=== PATIENT | female | born 1970 | race Caucasian/White ===

== ENCOUNTER 2017-08-14 19:51 | Emergency (ER) | payer MEDICAID ==
[2017-11-12] MEDS ORDERED: OMEPRAZOLE20 M1 PO (09:14)
[2017-11-12] MEDS ORDERED: REQUIP1 MG PO (09:15)
[2017-11-12] MEDS ORDERED: BUMETANIDE0.5 MG PO (09:15)
[2017-11-12] MEDS ORDERED: FLUTICASONE PRO16 GM NASAL (09:15)
[2017-11-12] MEDS ORDERED: BUPROPION HCL100 MG PO (09:16)
[2017-11-12] MEDS ORDERED: HYDROCODONE-APA1 TAB PO (09:16)
[2017-11-12] MEDS ORDERED: ESTRACE2 MG PO (09:16)
[2017-11-12] MEDS ORDERED: TOPROL XL25 MG PO (09:17)
[2017-11-12] MEDS ORDERED: KLONOPIN1 MG PO (09:17)
[2017-11-12] MEDS ORDERED: MOBIC7.5 MG PO (09:20)
[2017-11-15 08:28] VITALS: BMI 36.2
== END 2017-08-14 23:30 | disposition home or self-care (01) ==
LOC: D.ER 19:51
DX: S83.92XA Sprain of unspecified site of left knee, initial encounter (principal); X58.XXXA Exposure to other specified factors, initial encounter; Y93.41 Activity, dancing; Y92.89 Other specified places as the place of occurrence of the external cause; S93.402A Sprain of unspecified ligament of left ankle, initial encounter; I10 Essential (primary) hypertension; K21.9 Gastro-esophageal reflux disease without esophagitis; F17.200 Nicotine dependence, unspecified, uncomplicated

== ENCOUNTER → 2017-08-30 13:01 | Outpatient (CLI) | payer MEDICAID ==
[~2017-08-30 13:01] MED LIST: BUMETANIDE0.5 MG PO; BUPROPION HCL100 MG PO; DILAUDID4 MG PO; ESTRACE2 MG PO; FLUTICASONE PRO16 GM NASAL; HYDROCODONE-APA1 TAB PO; KLONOPIN1 MG PO; MOBIC7.5 MG PO; OMEPRAZOLE20 M1 PO; REQUIP1 MG PO; TOPROL XL25 MG PO
[2017-11-15 08:28] VITALS: BMI 36.2
== END | disposition home or self-care (01) ==
LOC: D.MRI 11:00
DX: S83.242A Other tear of medial meniscus, current injury, left knee, initial encounter (principal); X58.XXXA Exposure to other specified factors, initial encounter; Y93.89 Activity, other specified; Y92.029 Unspecified place in mobile home as the place of occurrence of the external cause; M24.272 Disorder of ligament, left ankle

== ENCOUNTER 2017-11-15 06:41 | Day surgery (SDC) | payer MEDICAID ==
[2017-11-12 11:15] LABS: CALC OSMOLALITY 287 mosm/kg (275-300); CARBON DIOXIDE 29.7 mmol/L (21.0-32.0); CHLORIDE - SERUM 106 mmol/L (98-107); CREATININE - SERUM 0.8 mg/dL (0.6-1.3); GLUCOSE 97 mg/dL (74-106); POTASSIUM - SERUM 4.1 mmol/L (3.5-5.1); SODIUM 144 mmol/L (136-145); UREA NITROGEN 14 mg/dL (7-18); eGFR NON AFRICAN AMERICAN 82 mL/min (90-120)
[2017-11-12 14:56] LABS: HEMATOCRIT 43.4 % (36.0-48.0); HEMOGLOBIN 13.3 g/dL (12-16); MCH 28.9 pg (26.0-34.0); MCHC 30.6 g/dL (31.0-37.0); MCV 94.1 fL (80.0-100.0); MEAN PLATELET VOLUME 11.4 fL (7.4-10.4); RBC 4.61 10x6/uL (4.00-5.40); RDW 14.9 % (11.5-14.5); WBC 7.4 10x3/uL (4.8-10.8)
[~2017-11-15] VITALS: Ht 172.7 cm; Wt 108.0 kg
--- NOTE | ~2017-11-15 | OP ---
PATIENT NAME: NICOLAS SORIA MEDICAL RECORD: [id number] :74 LOCATION:E[facility] ADMISSION DATE: SURGEON: ELBERT WALKER MD DATE OF OPERATION: 11/15/2017 PREOPERATIVE DIAGNOSIS: Anterior cruciate ligament tear of the left knee. POSTOPERATIVE DIAGNOSIS: Anterior cruciate ligament tear of the left knee. PROCEDURE: ACL reconstruction, left knee. SURGEON: Elbert Walker MD ANESTHESIA: General. INTRAOPERATIVE COMPLICATIONS: The case had to be converted from arthroscopy to arthrotomy because the graft was hung up in this large patient's adipose tissue. OPERATIVE SUMMARY IN DETAIL: After obtaining the appropriate preoperative orthopedic surgery consent as well as anesthetic consultation, evaluation and clearance, the patient was brought to the operative suite and placed in the operating table in supine position. After adequate general laryngeal mask was administered, tourniquet was placed about the proximal aspect of left lower extremity. Left lower extremity was then prepped and draped in routine sterile fashion. Leg was elevated and exsanguinated, tourniquet inflated to 350 mmHg. Routine inferolateral portal was established followed by superomedial portal and inferomedial portal. Diagnostic arthroscopy showed the patient had an ACL tear only. The residual in the ACL was taken down and notchplasty was performed. Tibial tunnel was created followed by the femoral tunnel after using the spade tipped drill. The graft was prepared on the back that is stqy-mguuyd-bwwc allograft and on its initial first passing, it would not deploy into the femoral tunnel. Unfortunately, the first TightRope had already deployed the lateral cortex, so arthrotomy was made. Then under direct visualization, the first TightRope was removed. The graft was taken out of the knee and reprepared with a TightRope. Also under direct visualization, the femoral tunnel was widened 0.5 mm bigger. It was then pulled through and through with good seating on both the femoral side as well as the tibial side. At this point, the knee was taken through range of motion. The TightRope was secured firmly to the lateral cortex and the distal fixation was achieved with a bicortical Arthrex 6.5 mm post. After all components were in placed in the graft, the knee was taken through range of motion. Sarah was negative as was anterior drawer. At this point, the patient's large incision was copiously irrigated. The arthrotomy itself was closed with #1 Vicryl. This was followed by 2-0 Vicryl and skin benson. The arthroscopy portals were also closed. Sterile dressings were applied. Tourniquet was deflated. The patient was awakened and taken to recovery in stable condition. All final needle and sponge counts were correct. TRANSINT:[id number] Voice Confirmation ID: [id number] DOCUMENT ID: [id number] OPERATIVE REPORT [id number] NICOLAS SORIA MD, ELBERT YAÑEZ at 1651 CC: [id number] DICTATION DATE: 11/15/17 1323 IN HOME TUTOR: 11/15/17 1602 REG [facility] [address] [place] [address]
[~2017-11-15 06:41] MED LIST changes: -DILAUDID4 MG PO
[2017-11-15 08:28] VITALS: BP 116/78; Ht 172.7 cm; Wt 108.0 kg
[2017-11-15] MEDS ORDERED: DILAUDID4 MG PO (12:11)
== END 2017-11-15 14:00 | disposition home or self-care (01) ==
LOC: D.PAN 06:41 → D.OPS 08:55 → D.PAN 09:00 → D.OPS 09:00 → D.PAN 14:00
PROVIDERS: Anesthesiology
DX: S83.512A Sprain of anterior cruciate ligament of left knee, initial encounter (principal); M25.562 Pain in left knee; S83.222A Peripheral tear of medial meniscus, current injury, left knee, initial encounter; F17.200 Nicotine dependence, unspecified, uncomplicated; I10 Essential (primary) hypertension; K21.9 Gastro-esophageal reflux disease without esophagitis; J44.9 Chronic obstructive pulmonary disease, unspecified; Z01.812 Encounter for preprocedural laboratory examination

== ENCOUNTER → 2018-05-26 15:56 | Outpatient (CLI) | payer MEDICAID ==
[2017-11-15 08:28] VITALS: BMI 36.2
[~2018-05-26 15:56] MED LIST changes: +DILAUDID4 MG PO
== END | disposition home or self-care (01) ==
LOC: D.MRI 15:56
DX: M25.562 Pain in left knee (principal)

== ENCOUNTER → 2018-07-26 09:57 | Outpatient (CLI) | payer MEDICAID ==
[2017-11-15 08:28] VITALS: BMI 36.2
== END | disposition home or self-care (01) ==
LOC: D.MRI 09:57
DX: M25.562 Pain in left knee (principal); S93.402A Sprain of unspecified ligament of left ankle, initial encounter; X58.XXXA Exposure to other specified factors, initial encounter

== ENCOUNTER → 2019-01-25 12:53 | Outpatient (CLI) | payer MEDICAID ==
[2017-11-15 08:28] VITALS: BMI 36.2
== END | disposition home or self-care (01) ==
LOC: D.MRI 01-17 14:30
PROVIDERS: ATTEND Clinical Nurse Specialist Family Health
DX: M25.561 Pain in right knee (principal)

== ENCOUNTER 2019-02-09 05:40 | Day surgery (SDC) | payer MEDICAID ==
[2019-02-08 10:05] LABS: HEMATOCRIT 46.2 % (36.0-48.0); HEMOGLOBIN 14.5 g/dL (12-16); MCH 28.2 pg (26.0-34.0); MCHC 31.4 g/dL (31.0-37.0); MCV 89.7 fL (80.0-100.0); MEAN PLATELET VOLUME 10.7 fL (7.4-10.4); RBC 5.15 10x6/uL (4.00-5.40); RDW 15.6 % (11.5-14.5); WBC 9.3 10x3/uL (4.8-10.8)
[2019-02-08 10:09] LABS: CALC OSMOLALITY 277 mosm/kg (275-300); CALCIUM 9.1 mg/dL (8.5-10.1); CARBON DIOXIDE 26.3 mmol/L (21.0-32.0); CHLORIDE - SERUM 104 mmol/L (98-107); CREATININE - SERUM 0.8 mg/dL (0.6-1.3); GLUCOSE 98 mg/dL (74-106); POTASSIUM - SERUM 4.2 mmol/L (3.5-5.1); SODIUM 139 mmol/L (136-145); UREA NITROGEN 13 mg/dL (7-18); eGFR NON AFRICAN AMERICAN 82 mL/min (90-120)
[~2019-02-09] VITALS: Ht 172.7 cm; Wt 129.3 kg
[2019-02-09 06:43] VITALS: BP 121/63; Ht 172.7 cm; Wt 129.3 kg
[2019-02-09] MEDS ORDERED: HYDROCODON-ACE1 EA10 PO (08:48)
--- NOTE | 2019-02-16 11:33 | OP ---
PATIENT NAME: NICOLAS SORIA MEDICAL RECORD: [id number] :74 LOCATION:[facility] ADMISSION DATE: SURGEON: ELBERT WALKER MD DATE OF OPERATION: 02/09/2019 PREOPERATIVE DIAGNOSIS: Anterior cruciate ligament rupture of the right knee. POSTOPERATIVE DIAGNOSIS: Anterior cruciate ligament rupture of the right knee. PROCEDURE: Anterior cruciate ligament reconstruction of the right knee. SURGEON: Elbert Walker MD ANESTHESIA: General. INTRAOPERATIVE COMPLICATIONS: None. SUMMARY OF PATHOLOGIC FINDINGS: The patient was indeed found to have a full thickness ACL tear consistent with the preoperative diagnosis and MRI findings as well as physical examination findings. OPERATIVE SUMMARY IN DETAIL: After obtaining the appropriate preoperative orthopedic surgery consent as well as anesthetic consultation, evaluation and clearance, the patient was brought to the operating room and placed on the operating table in supine position. After general laryngeal mask airway was administered, tourniquet was placed on the proximal aspect of the right lower extremity. Right lower extremity was then prepped and draped in routine sterile fashion. The leg was elevated and exsanguinated, tourniquet was inflated to 350 mmHg. Routine inferolateral portal was established followed by superomedial portal and inferomedial portal. Diagnostic arthroscopy showed the patient have the above findings. Mild chondromalacia was seen with some synovitis; however, not substantial except with the small area of grade II on the medial side. Residual ACL stump was then debrided. Formal notchplasty was performed using the arthroscopic resector. An 11-mm tibial tunnel was created followed by 11-mm femoral socket using the TightRope system. The allograft TightRope was then deployed into the tibial and femoral sockets with excellent seating. The TightRope button was then maximally tensioned. The distal FiberWires were held and the knee was taken through a range of motion and seated and then it was secured firmly over an Arthrex bicortical post. Having completed this, wounds were irrigated and closed in usual fashion. Sterile dressings were applied. Tourniquet was deflated. The patient was awakened, taken to the recovery room in stable condition. All final needle and sponge counts were correct. TRANSINT:[id number] Voice Confirmation ID: [id number] DOCUMENT ID: [id number] ELBERT WALKER MD at 1133 CC: [id number] DICTATION DATE: 02/15/19 1728 FINANCE AND ADMINISTRATION MANAGER: 02/16/[address] [facility] 02/09/19 [place] [id number] [place] [id number]
== END 2019-02-09 11:15 | disposition home or self-care (01) ==
LOC: D.OPS 05:40 → D.PAN 07:30 → D.OPS 11:15
PROVIDERS: Anesthesiology; ATTEND Orthopaedic Surgery
DX: S83.511A Sprain of anterior cruciate ligament of right knee, initial encounter (principal); X58.XXXA Exposure to other specified factors, initial encounter; M94.261 Chondromalacia, right knee; Z01.812 Encounter for preprocedural laboratory examination

== ENCOUNTER → 2019-03-21 14:03 | Outpatient (CLI) | payer MEDICAID ==
[2019-02-09 06:43] VITALS: BMI 43.4
[~2019-03-21 14:03] MED LIST changes: +HYDROCODON-ACE1 EA10 PO
== END | disposition home or self-care (01) ==
LOC: D.US 14:03
PROVIDERS: ATTEND Orthopaedic Surgery
DX: R60.0 Localized edema (principal)

== ENCOUNTER → 2019-04-03 11:00 | Outpatient (CLI) | payer MEDICAID ==
[2019-02-09 06:43] VITALS: BMI 43.4
== END | disposition home or self-care (01) ==
LOC: D.MRI 03-29 11:00
PROVIDERS: ATTEND Clinical Nurse Specialist Family Health
DX: M25.561 Pain in right knee (principal)

== ENCOUNTER → 2019-07-05 14:05 | Outpatient (CLI) | payer MEDICAID ==
[2019-02-09 06:43] VITALS: BMI 43.4
[~2019-07-05 14:05] MED LIST changes: +BACLOFEN10 MG PO; +OMNICEF300 MG PO; +PERCOCET 10-321 EAC1 PO; +PROTONIX20 MG PO; +ULTRAM50 MG PO
== END | disposition home or self-care (01) ==
LOC: D.MRI 14:05
PROVIDERS: ATTEND Clinical Nurse Specialist Family Health
DX: M25.562 Pain in left knee (principal)

== ENCOUNTER 2019-07-05 15:08 | Emergency (ER) | payer MEDICAID ==
[~2019-07-05] VITALS: Ht 172.7 cm; Wt 125.0 kg
[~2019-07-05 15:08] MED LIST changes: -BACLOFEN10 MG PO; -OMNICEF300 MG PO; -PERCOCET 10-321 EAC1 PO; -PROTONIX20 MG PO; -ULTRAM50 MG PO
[2019-07-05 15:17] VITALS: Ht 172.7 cm; Wt 125.0 kg
[2019-07-05] MEDS ORDERED: BACLOFEN10 MG PO (15:19)
[2019-07-05 16:00] LABS: APPEARANCE CLEAR (CLEAR); BILIRUBIN NEGATIVE (NEGATIVE); COLOR YELLOW (YELLOW); GLUCOSE NEGATIVE (NEGATIVE); KETONE NEGATIVE (NEGATIVE); NITRITE NEGATIVE (NEGATIVE); PROTEIN NEGATIVE (NEGATIVE); UROBILINOGEN NORMAL (NORMAL)
[2019-07-05 16:01] LABS: EPITHELIAL CELLS 0-5 /hpf (0-5); RED CELLS - URINE OCC /hpf (0-5)
[2019-07-05 16:02] LABS: BACTERIA MANY /hpf (NONE SEEN)
[2019-07-05] MEDS ORDERED: OMNICEF300 MG PO (17:40)
[2019-07-05] MEDS ORDERED: ULTRAM50 MG PO (17:40)
[2019-07-05 18:56] VITALS: BP 125/65
[2019-07-28] MEDS ORDERED: PROTONIX20 MG PO (12:48)
== END 2019-07-05 18:57 | disposition home or self-care (01) ==
LOC: D.ER 15:08
PROVIDERS: Family Medicine
DX: N39.0 Urinary tract infection, site not specified (principal); M54.5 Low back pain

== ENCOUNTER 2019-07-31 06:05 | Day surgery (SDC) | payer MEDICAID ==
[2019-07-28 13:15] LABS: HEMATOCRIT 45.2 % (36.0-48.0); HEMOGLOBIN 14.4 g/dL (12-16); MCH 28.9 pg (26.0-34.0); MCHC 31.9 g/dL (31.0-37.0); MCV 90.8 fL (80.0-100.0); MEAN PLATELET VOLUME 10.5 fL (7.4-10.4); RBC 4.98 10x6/uL (4.00-5.40); RDW 16.2 % (11.5-14.5); WBC 8.6 10x3/uL (4.8-10.8)
[~2019-07-31] VITALS: Ht 172.7 cm; Wt 127.0 kg
[~2019-07-31 06:05] MED LIST changes: +BACLOFEN10 MG PO; +OMNICEF300 MG PO; +PROTONIX20 MG PO; +ULTRAM50 MG PO
[2019-07-31 06:27] VITALS: BP 120/90; Ht 172.7 cm; Wt 127.0 kg
[2019-07-31] MEDS ORDERED: PERCOCET 10-321 EAC1 PO (10:46)
--- NOTE | 2019-07-31 11:59 | NUR ---
7929 MULTIPLE FAMILY AT SIDE. HAS ROUNDED WITH FAMILY.
--- NOTE | 2019-07-31 12:39 | OP ---
PATIENT NAME: NICOLAS SORIA MEDICAL RECORD: [id number] :74 LOCATION:[facility] ADMISSION DATE: SURGEON: AARON MUIR, ELBERT AYÑEZ DATE OF OPERATION: 07/31/2019 PREOPERATIVE DIAGNOSES: 1. Medial meniscus tear of the left knee. 2. Patellofemoral syndrome of the left knee. POSTOPERATIVE DIAGNOSES: 1. Partial thickness anterior cruciate ligament tear of left knee. 2. Articular loose bodies of the left knee. 3. Patellofemoral syndrome. PROCEDURES: 1. Arthroscopic loose body removal, left knee. 2. Arthroscopic debridement, partial thickness ACL tear. 3. Arthroscopic lateral release. SURGEON: Elbert Walker MD ANESTHESIA: General. INTRAOPERATIVE COMPLICATIONS: None. SUMMARY OF PATHOLOGIC FINDINGS: The patient was thought to have a lateral meniscus tear; however, she clearly had an anterior aspect and anterior medial aspect of her ACL graft, which was torn. She had a chondral flap that did appear to come from unroofing of the ACL tunnel that was also in the medial aspect of the knee along with several loose bodies. One small area of chondromalacia was seen on the weightbearing surface of the distal medial femoral condyle, grade II at best. The patient's patella was riding on the lateral facet with some early chondromalacia changes seen in the lateral facet consistent with the diagnosis of patellofemoral syndrome. OPERATIVE SUMMARY IN DETAIL: After obtaining the appropriate preoperative orthopedic surgery consent as well as anesthetic consultation, evaluation, and clearance, the patient was brought to the operating room and placed on the operating table in supine position. After general laryngeal mask airway was administered, tourniquet was placed on the proximal aspect of the left lower extremity. Left lower extremity was then prepped and draped in routine sterile fashion. The leg was elevated and exsanguinated, tourniquet was inflated to 350 mmHg. Routine inferolateral portal was established followed by superomedial portal and inferomedial portal. Diagnostic arthroscopy did reveal the above findings. Combination of full radius resector as well as a grasper were utilized to remove the loose bodies. These were photographed intraoperatively along with the anterior cruciate ligament that was torn. This portion was taken down; however, after the medial aspect, which did appear to be one fold of the patient's ACL reconstruction, the patient continued to have very stable knee with a negative arthroscopic anterior drawer finding. Lateral compartment was relatively pristine. Attention was then turned to the lateral release. Facet findings were noted. With direct arthroscopic visualization from medial portal, the lateral retinaculum was released just below the vastus lateralis all the way to the inferolateral portal. This resulted in excellent release. Having completed this, the knee was insufflated with 30 cc of 0.25% Marcaine with OPERATIVE REPORT [id number] NICOLAS SORIA epinephrine and 80 mg of Depo-Medrol. Arthroscopy portals were closed in routine interrupted fashion using 4-0 Prolene. Sterile dressings were applied. Tourniquet was deflated. The patient was awakened, taken to recovery room in stable condition. All final needle and sponge counts were correct. TRANSINT:[id number] Voice Confirmation ID: [id number] DOCUMENT ID: [id number] AARON MUIR, ELBERT YAÑEZ at 1239 CC: [id number] DICTATION DATE: 07/31/19 1049 ARRANGER ASSEMBLER: 07/31/19 1227 REG [place] [address] [place] [id number]
--- NOTE | 2019-07-31 12:43 | NUR ---
PT DC INSTRUCTIONS REVIEWED AT THIS TIME, PT VERBALIZES UNDERSTANDING. PT IV REMOVED AT THIS TIME, INTACT, NO REDNESS OR SWELLING NOTED AT SITE.
== END 2019-07-31 13:21 | disposition home or self-care (01) ==
LOC: D.OPS 06:05 → D.PAN 08:00 → D.OPS 08:00
PROVIDERS: Anesthesiology; ATTEND Orthopaedic Surgery
DX: S83.242A Other tear of medial meniscus, current injury, left knee, initial encounter (principal); X58.XXXA Exposure to other specified factors, initial encounter; S83.512A Sprain of anterior cruciate ligament of left knee, initial encounter

== ENCOUNTER 2019-09-05 22:01 | Emergency (ER) | payer MEDICAID ==
[~2019-09-05] VITALS: Ht 172.7 cm; Wt 102.3 kg
[~2019-09-05 22:01] MED LIST changes: +PERCOCET 10-321 EAC1 PO
[2019-09-05 22:04] VITALS: Ht 172.7 cm; Wt 102.3 kg
[2019-09-05] MEDS ORDERED: ALBUTEROL SULF8.5 GM INH (22:47)
[2019-09-05] MEDS ORDERED: ZPAK PO (22:47)
[2019-09-05 23:00] VITALS: BP 125/71
== END 2019-09-05 23:00 | disposition home or self-care (01) ==
LOC: D.ER 22:01
DX: J20.9 Acute bronchitis, unspecified (principal); R05 Cough

== ENCOUNTER 2019-11-02 06:10 | Day surgery (SDC) | payer MEDICAID ==
[2019-10-30 10:24] LABS: HEMATOCRIT 47.2 % (36.0-48.0); HEMOGLOBIN 14.7 g/dL (12-16); MCH 28.2 pg (26.0-34.0); MCHC 31.1 g/dL (31.0-37.0); MCV 90.6 fL (80.0-100.0); MEAN PLATELET VOLUME 10.6 fL (7.4-10.4); RBC 5.21 10x6/uL (4.00-5.40); RDW 16.2 % (11.5-14.5); WBC 12.1 10x3/uL (4.8-10.8)
[~2019-11-02] VITALS: Ht 172.7 cm; Wt 124.7 kg
[~2019-11-02 06:10] MED LIST changes: +ALBUTEROL SULF8.5 GM INH; +IMITREX50 MG; +PROZAC20 MG; +ZPAK PO
[2019-11-02 06:53] VITALS: BP 132/85; Ht 172.7 cm; Wt 124.7 kg
[2019-11-02] MEDS ORDERED: HYDROCODON-ACE1 EA10 PO (08:44)
--- NOTE | 2019-11-02 10:56 | OP ---
PATIENT NAME: NICOLAS SORIA MEDICAL RECORD: [id number] :74 LOCATION:[facility] ADMISSION DATE: SURGEON: ELBERT WALKER MD DATE OF OPERATION: 11/02/2019 PREOPERATIVE DIAGNOSES: 1. Carpal tunnel syndrome of the left wrist. 2. Adhesive capsulitis of the left shoulder. POSTOPERATIVE DIAGNOSES: 1. Carpal tunnel syndrome of the left wrist. 2. Adhesive capsulitis of the left shoulder. PROCEDURES: 1. Carpal tunnel release of the left wrist. 2. Manipulation of the left shoulder under anesthesia with an interscalene block. INTRAOPERATIVE COMPLICATIONS: None. SUMMARY OF PATHOLOGIC FINDINGS: Consistent with preoperative diagnoses, the patient had very tight transverse carpal ligament. Also, the patient did have [id number] adhesive capsulitis. Manipulation was very successful. OPERATIVE SUMMARY IN DETAIL: After obtaining the appropriate preoperative orthopedic surgery consent as well as anesthetic consultation, evaluation and clearance, the patient was brought to the operating room and placed on the operating table in supine position. After general laryngeal mask airway was administered, tourniquet was placed on the proximal aspect of the left upper extremity. Left upper extremity was prepped and draped in routine sterile fashion. After the appropriate timeout was taken, the shoulder was stabilized at the scapular region and it was manipulated first in abduction followed by external rotation, abduction, internal rotation. Having completed this, the arm was elevated and exsanguinated, tourniquet was inflated to 350 mmHg. Midline incision was made in line with the fourth metacarpal ray taken down the level of transverse carpal ligament. It was identified and gently incised. Then, under direct visualization with a [place] as protection, [place] light knife was utilized to release the entire transverse carpal ligament. Having completed this, wound was irrigated. Local lidocaine and Marcaine were placed around the incision. The incision was then closed by TERRI Erickson. Sterile dressings were applied. Tourniquet was deflated. The patient was awakened and taken to recovery room in stable condition. All final needle and sponge counts were correct. TRANSINT:[id number] Voice Confirmation ID: [id number] DOCUMENT ID: [id number] ELBERT WALKER MD at 1056 CC: [id number] DICTATION DATE: 11/02/19 0846 LEATHER FINISHER: 11/02/19 1052 REG [facility] [address] [place] [id number]
== END 2019-11-02 10:35 | disposition home or self-care (01) ==
LOC: D.OPS 06:10 → D.PAN 08:15 → D.OPS 10:35
PROVIDERS: Anesthesiology; ATTEND Orthopaedic Surgery
DX: G56.02 Carpal tunnel syndrome, left upper limb (principal); M75.02 Adhesive capsulitis of left shoulder; M25.561 Pain in right knee; M25.562 Pain in left knee; M17.12 Unilateral primary osteoarthritis, left knee

== ENCOUNTER → 2020-01-08 14:38 | Outpatient (CLI) | payer MEDICAID ==
[2019-11-02 06:53] VITALS: BMI 41.9
== END | disposition home or self-care (01) ==
LOC: D.MRI 14:38
PROVIDERS: ATTEND Orthopaedic Surgery
DX: S83.232A Complex tear of medial meniscus, current injury, left knee, initial encounter (principal)

== ENCOUNTER 2020-01-11 08:00 | Outpatient (CLI) | payer MEDICAID ==
[2019-11-02 06:53] VITALS: BMI 41.9
== END 2020-01-11 23:59 | disposition home or self-care (01) ==
LOC: D.MAMMO 08:00
PROVIDERS: ATTEND Obstetrics & Gynecology
DX: N63.25 Unspecified lump in the left breast, overlapping quadrants (principal)

== ENCOUNTER 2020-01-14 03:14 | Emergency (ER) | payer MEDICAID ==
[~2020-01-14] VITALS: Ht 172.7 cm; Wt 130.9 kg
[2020-01-14 03:18] VITALS: Ht 172.7 cm; Wt 130.9 kg
[2020-01-14] MEDS ORDERED: RANITIDINE HCL150 M1 PO (03:20)
[2020-01-14] MEDS ORDERED: OXYBUTYNIN CHLOR5 MG PO (03:21)
[2020-01-14 03:56] LABS: BACTERIA FEW /hpf (NEGATIVE); BILIRUBIN NEGATIVE (NEGATIVE); EPITHELIAL CELLS 0-5 /hpf (0-5); GLUCOSE NEGATIVE (NEGATIVE); KETONE NEGATIVE (NEGATIVE); NITRITE NEGATIVE (NEGATIVE); RED CELLS - URINE 0-5 /hpf (0-5); SPECIFIC GRAVITY 1.015 (1.005-1.020); UROBILINOGEN NORMAL (NORMAL); WHITE CELLS - URINE 0-5 /hpf (NEGATIVE)
[2020-01-14] MEDS ORDERED: NAPROSYN500 MG PO (04:11)
[2020-01-14] MEDS ORDERED: CYCLOBENZAPRINE10 MG PO (04:11)
[2020-01-14 04:32] VITALS: BP 145/101
== END 2020-01-14 04:33 | disposition home or self-care (01) ==
LOC: D.ER 03:14
PROVIDERS: Family Medicine
DX: M54.5 Low back pain (principal); I10 Essential (primary) hypertension; Z72.0 Tobacco use

== ENCOUNTER → 2020-03-08 15:51 | Outpatient (CLI) | payer MEDICAID ==
[2020-01-14 03:18] VITALS: BMI 43.8
[~2020-03-08 15:51] MED LIST changes: +CYCLOBENZAPRINE10 MG PO; +NAPROSYN500 MG PO; +OXYBUTYNIN CHLOR5 MG PO; +RANITIDINE HCL150 M1 PO
== END | disposition home or self-care (01) ==
LOC: D.LABREF 15:51
PROVIDERS: ATTEND Orthopaedic Surgery
DX: M17.12 Unilateral primary osteoarthritis, left knee (principal)

== ENCOUNTER 2020-03-11 12:32 | Inpatient (IN) | payer MEDICAID ==
[~2020-03-11] VITALS: Ht 172.7 cm; Wt 132.7 kg
[2020-04-03 11:54] LABS: BASOPHILS 0.2 % (0-2); EOSINOPHILS 3.6 % (0-7); HEMATOCRIT 45.1 % (36.0-48.0); HEMOGLOBIN 13.8 g/dL (12-16); LYMPHOCYTES 23.5 % (15-50); MCH 28.3 pg (26.0-34.0); MCHC 30.6 g/dL (31.0-37.0); MCV 92.6 fL (80.0-100.0); MEAN PLATELET VOLUME 10.5 fL (7.4-10.4); MONOCYTES 7.7 % (2-11); PLATELET COUNT 262 10x3/uL (130-400); RBC 4.87 10x6/uL (4.00-5.40); RDW 15.5 % (11.5-14.5); WBC 9.2 10x3/uL (4.8-10.8)
[2020-04-03 11:56] LABS: ANION GAP 14.5 mmol/L (8-16); CALCIUM 8.6 mg/dL (8.5-10.1); CARBON DIOXIDE 26.3 mmol/L (21.0-32.0); CREATININE - SERUM 1.3 mg/dL (0.6-1.3); POTASSIUM - SERUM 3.8 mmol/L (3.5-5.1)
[2020-04-03 11:57] LABS: APTT 26.1 SECONDS (22.8-39.4); INR 0.92 (0.85-1.17); PROTIME 12.3 SECONDS (11.6-15.0)
[2020-04-03 13:44] LABS: BACTERIA MANY /hpf (NEGATIVE); BILIRUBIN NEGATIVE (NEGATIVE); EPITHELIAL CELLS 0-5 /hpf (0-5); GLUCOSE NEGATIVE (NEGATIVE); KETONE NEGATIVE (NEGATIVE); NITRITE POSITIVE (NEGATIVE); RED CELLS - URINE 0-5 /hpf (0-5); UROBILINOGEN NORMAL (NORMAL); WHITE CELLS - URINE 0-5 /hpf (NEGATIVE)
--- NOTE | 2020-04-03 14:06 | NUR ---
1400-UA RESULTS CALLED TO OFFICE.
[2020-04-08] VITALS (12 sets, daily range): BP systolic 101–135; BP diastolic 42–103; BMI 36.4; BMI 24.3
[2020-04-08 06:45] LABS: BACTERIA MODERATE /hpf (NEGATIVE); BILIRUBIN NEGATIVE (NEGATIVE); EPITHELIAL CELLS 0-5 /hpf (0-5); GLUCOSE NEGATIVE (NEGATIVE); HYALINE CAST RARE /lpf (NONE SEEN); KETONE NEGATIVE (NEGATIVE); NITRITE NEGATIVE (NEGATIVE); RED CELLS - URINE 0-5 /hpf (0-5); UROBILINOGEN NORMAL (NORMAL); WHITE CELLS - URINE 0-5 /hpf (NEGATIVE)
--- NOTE | 2020-04-08 07:03 | NUR ---
0628 DR WALKER NOTIFIED OF URINALYSIS RESULTS FROM THIS MORNING. DR WALKER STATES TO PROCEED GETTING PT READY FOR SURGERY.
--- NOTE | 2020-04-08 11:15 | NUR ---
RECEIVED TO ROOM 1208 VIA BED FROM PACU. ROUSES TO VERBAL STIMULATION BUT VERY LETHARGIC. VSS. DENIES PAIN. DRESSING TO LEFT KNEE IS DRY AND INTACT. FAMILY IN ROOM.
--- NOTE | 2020-04-08 14:04 | NUR ---
HAD ABOUT 200 CC DARL GREEN EMESIS. CALLED ULYSSES TRUONG APN. NEW ORDERS RECEIVED.
--- NOTE | 2020-04-08 14:09 | NUR ---
RESTING QUIETLY WITH EYES CLOSED. PUREWICK PLACED WITH GOOD CLEAR YELLOW RETURN. DAUGHTER AT BEDSIDE.
--- NOTE | 2020-04-08 17:15 | NUR ---
WAS INCONTINENT OF URINE. PURE WICK HAD MOVED. LINENS CHANGED AND PURE WICK REPLACED. GIVEN TORADOL SLOW IVP FOR C/O LEFT KNEE PAIN LEVEL 9. WILL MONITOR. CPM IN PLACE AT THIS TIME.
--- NOTE | 2020-04-08 18:58 | NUR ---
PATIENT RESTING IN BED WITH NO S/S OF DISTRESS. GUEST AT BEDSIDE. PATIENT ON CPM MACHINE. PATIENT DENIES NEEDS AT THIS TIME. BED IN LOWEST POSITION AND CALL LIGHT WITHIN REACH. ENCOURAGED THE PATIENT TO CALL IF SHE HAS NEEDS. WILL CONTINUE TO MONITOR.
--- NOTE | 2020-04-08 20:15 | NUR ---
REMOVED PATIENT FROM CPM MACHINE
[2020-04-09 00:04] VITALS: BP 89/49
--- NOTE | 2020-04-09 05:02 | NUR ---
PLACED PATIENT ON CPM MACHINE
[2020-04-09 06:07] VITALS: BP 108/46
[2020-04-09 07:00] VITALS: BP 103/53
--- NOTE | 2020-04-09 07:00 | NUR ---
RECEIVED BEDSIDE REPORT ON PATIENT AND ASSUMED CARE OF PATIENT. PATIENT IN BED, WITH CPM ON LEFT LEG, VSS. RATES PAIN 10/10 BUT HAS ONLY USED PRICE LISTER 1 TIME, INSTRUCTED ON THE USE OF PRICE LISTER. IV 20 GA TO RIGHT HAND INFUSING 1/2 NS AT 100 ML/HR WITH NO S/S OF INFILTRATION NOTED. BBS - CLEAR AND EQUAL. ON RA. DRESSING TO LEFT KNEE C/D/I. VSS. HEAD TO TOE ASSESSMENT COMPLETED.
[2020-04-09 07:02] LABS: HEMATOCRIT 36.2 % (36.0-48.0); HEMOGLOBIN 10.7 g/dL (12-16); MCH 27.7 pg (26.0-34.0); MCHC 29.6 g/dL (31.0-37.0); MCV 93.8 fL (80.0-100.0); MEAN PLATELET VOLUME 10.3 fL (7.4-10.4); RBC 3.86 10x6/uL (4.00-5.40); RDW 15.9 % (11.5-14.5); WBC 10.4 10x3/uL (4.8-10.8)
--- NOTE | 2020-04-09 07:34 | NUR ---
PATIENT GIVEN BREAKFAST TRAY AND ASSISTED WITH SET UP. NO NEEDS AT THIS TIME.
--- NOTE | 2020-04-09 08:15 | NUR ---
PATIENT ATE 100% OF BREAKFAST TRAY, CPM REMOVED. SMALL AMOUNT OF BLOOD NOTED TO ALINA WRAP, PLACED ON BEDPAN. MORNING MEDS PER DEC. VOIDS 200 ML.
--- NOTE | 2020-04-09 08:22 | NUR ---
1/2 NS INFUSING DISCONTINUED PER ORDER.
--- NOTE | 2020-04-09 09:12 | NUR ---
CERTIFIED ORTHOTIST/PEDORTHIST DISCONTINUED PER ORDER. IV NSL.
--- NOTE | 2020-04-09 10:00 | NUR ---
PATIENT UP TO BEDSIDE CHAIR WITH ASSISTANCE OF PT AND WALKER. LEG STILL NUMB. TOLERATES WELL.
[2020-04-09 10:12] VITALS: Ht 172.7 cm; Wt 132.7 kg
--- NOTE | 2020-04-09 10:17 | NUR ---
PATIENT GIVEN PRN PHENERGAN FOR NAUSEA. SITTING UP IN BEDSIDE CHAIR, WATCHING TV.
--- NOTE | 2020-04-09 11:08 | NUR ---
PATIENT UP TO BATHROOM WITH ASSIST AND WALKER.
[2020-04-09 11:29] VITALS: BP 108/60
--- NOTE | 2020-04-09 11:32 | NUR ---
PATIENT SITTING UPB IN BEDSIDE CHAIR, DAUGHTER AT BEDSIDE, STATES PAIN BETTER SINCE PRN MED. NO NEEDS AT THIS TIME.
--- NOTE | 2020-04-09 12:16 | NUR ---
REMOVED SURGICAL DRESSING FROM LEFT KNEE AND APPLIED PREVENA PLUS DRESSING. INCISION IS INTACT WITH JANETT. NO ODOR, REDNESS OR EDEMA. THERE WAS A LARGE AMOUNT OF BLOOD SATURATING THE SURGICAL DRESSING, BUT NO ACTIVE BLEEDING NOTED AFTER REMOVAL. PT TOLERATED WELL.
--- NOTE | 2020-04-09 13:20 | NUR ---
PATIENT ATE 100% OF LUNCH TRAY, C/O PAIN 10/10 TO LEFT KNEE, PRN MED PER DEC.
--- NOTE | 2020-04-09 14:25 | NUR ---
PATIENT RESTING QUIETLY, EYES CLOSED.
--- NOTE | 2020-04-09 15:20 | NUR ---
PATIENT RESTING QUIETLY, EASILY AROUSED BY VOICE, MEDS GIVEN PER MAR. NO NEEDS AT THIS TIME.
[2020-04-09 15:53] VITALS: BP 104/61
--- NOTE | 2020-04-09 16:21 | NUR ---
PATIENT ASSISTED UP TO BATHROOM WITH WALKER, VOIDS AND ASSISTED BACK TO BED. PRN PAIN MED GIVEN FOR PAIN 10/10.
--- NOTE | 2020-04-09 17:17 | NUR ---
PATIENT ATE 100% OF DINNER TRAY. CPM MACHINE PLACED BACK ON.
--- NOTE | 2020-04-09 20:00 | NUR ---
RESTING IN BED WITH CPM IN USE C/O PAIN TO KNEE, INFORMED WILL GIVE PAIN MED SOON POSSIABLE, ALINA WRAP DRESSING C/D/I TO LEFT KNEE, SEE SHIFT ASSESSMENT, CALL LIGHT IN REACH
[2020-04-09 20:05] VITALS: BP 130/71
--- NOTE | 2020-04-10 00:57 | NUR ---
PERCOCET 1 TAB GIVEN FOR C/O PAIN TO LEFT KNEE, RATES PAIN AT A 9 ON PAIN SCALE. FRESH CUP OF ICE WATER ALSO GIVEN AT THIS TIME. DAUGHTER IN CHAIR AT BED SIDE.
--- NOTE | 2020-04-10 01:43 | NUR ---
PAIN REASSESSMENT, PT IN BED WITH EYES CLOSED, RESPERATIONS EVEN AND NON LABORED. AFTER 3 TIMES OF STATING PTS NAME PT AROUSED, STATED THAT HER IS BETTER, NOW RATES PAIN AT A 7 ON PAIN SCALE.
[2020-04-10 04:59] VITALS: BP 124/69
[2020-04-10 06:21] LABS: HEMATOCRIT 38.5 % (36.0-48.0); HEMOGLOBIN 11.2 g/dL (12-16); MCH 27.5 pg (26.0-34.0); MCHC 29.1 g/dL (31.0-37.0); MCV 94.6 fL (80.0-100.0); MEAN PLATELET VOLUME 10.4 fL (7.4-10.4); RBC 4.07 10x6/uL (4.00-5.40); RDW 16.1 % (11.5-14.5); WBC 10.4 10x3/uL (4.8-10.8)
--- NOTE | 2020-04-10 07:20 | NUR ---
REPORT RECEIVED. PT CURRENTLY ON CPM. POD 2 OF LEFT TOTAL KNEE. PT HAS IV TO RIGHT HAND THAT IS SALINE LOCK. DAUGHTER AT BEDSIDE. PT COMPLAINS OF SOME PAIN. NOT YET TIME TO GET PAIN MEDICATION. ON ROOM AIR. CALL LIGHT IN REACH. WILL CONTINUE TO MONITOR.
[2020-04-10 08:44] VITALS: BP 121/55
--- NOTE | 2020-04-10 11:11 | NUR ---
PT WALKED WITH THERAPY.
--- NOTE | 2020-04-10 13:06 | MORECARE ---
CASE MANAGEMENT DISCHARGE SUMMARY PATIENT: NICOLAS SORIA UNIT: [id number] ADM DATE: 04/08/20 AGE: 49 : 74 SEX: F ROOM/BED: D.1208 AUTHOR: BARTOLO GONZALES PHYSICIAN: REFERRING PHYSICIAN: ELBERT WALKER MD DATE OF SERVICE: 04/10/20 Discharge Plan Patient Name: NICOLAS SORIA [facility] [facility] 1970 Planned Disposition: Anticipated Discharge Date: Discharge Date: Expected LOS: 0 Initial Reviewer: [email or web address] Initial Review Date: 04/08/2020 Generated: 04/10/20 2:06 pm Patient Name: NICOLAS SORIA Page [id number] at 1306 All edits/amendments must be made on the electronic document DICTATION DATE: 04/10/20 1306 NET C DEVELOPER: GAMA 04/10/20 1306 RPT#: [id number] DC DATE: STATUS: ADM IN [facility] [address] [place] [address] END OF REPORT
--- NOTE | 2020-04-10 13:35 | NUR ---
PT UP TO RESTROOM USING WALKER, STATES PAIN IN KNEE IS ABLUT A 9, ADMINISTERED PRN PAIN MEDICATION, NO OTHER NEEDS VOICED AT THIS TIME, DAUGHTER AT BEDISDE, CONTINUE WITH PLAN OF CARE
--- NOTE | 2020-04-10 13:52 | MORECARE ---
CASE MANAGEMENT DISCHARGE SUMMARY PATIENT: NICOLAS SORIA UNIT: [id number] ADM DATE: 04/08/20 AGE: 49 : 74 SEX: F ROOM/BED: D.1208 AUTHOR: JANET,DOC PHYSICIAN: REFERRING PHYSICIAN: ELBERT WALKER MD DATE OF SERVICE: 04/10/20 Discharge Plan Patient Name: NICOLAS SORIA Facility: [facility]:[place] : 1970 Planned Disposition: Outpatient PT\OT Anticipated Discharge Date: 04/11/20 Discharge Date: Expected LOS: 3 Initial Reviewer: [email or web address] Initial Review Date: 04/08/2020 Generated: 04/10/20 2:52 pm DCP- Discharge Planning Updated by [email or web address]: Ludy Rodriguez on 04/10/20 12:[address] DC Plan: [facility] OP Therapy, Phone #[phone], Fax #[phone]. Appointment: 04/12 @3:30, arrive @3:15 for paperwork. CM met with patient to discuss initial discharge planning. Patient is in agreement to proceed with the assessment. Patient reports that she lives at home independently with her family. Patient is alert/oriented. Stairs/steps: 4. PCP: DANIEL Yadav [facility] [place]. Pharmacy: [facility] Patient states she has been able to obtain all of her prescribed medications. HHS: No. DME: FROYLAN, Damon, [facility]. Patient gives permission to speak with family members/care givers. Emergency contact: Rosa Hawkins [phone], Bryce Delaney (shawn?) [phone]. Patient is Independent with all ADL's, medication management RN PLASMA CENTER. CM discussed the availability of HH, Rehab, SNF, OP Therapy, DME services. Patient's choice signed, [facility] OP Therapy. Patient denies the need for additional services at this time and feels safe returning to previous environment. Patient denies hospitalization within the past 30 days. Patient denies the use of community resources RN PLASMA CENTER. Transportation at time of discharge: magda, Bryce. Last DP export: 04/10/20 12:06 p Patient Name: NICOLAS SORIA Page [phone] at 1352 All edits/amendments must be made on the electronic document DICTATION DATE: 04/10/20 135 SUPERVISOR PIPELINE: GAMA 04/10/20 135 RPT#: [id number] DC DATE: STATUS: ADM IN [facility] [address] [place] [address] END OF REPORT
--- NOTE | 2020-04-10 14:02 | MORECARE ---
CASE MANAGEMENT DISCHARGE SUMMARY PATIENT: NICOLAS SORIA UNIT: [id number] ADM DATE: 04/08/20 AGE: 49 : 74 SEX: F ROOM/BED: D.1208 AUTHOR: JANET,DOC PHYSICIAN: REFERRING PHYSICIAN: ELBERT WALKER MD DATE OF SERVICE: 04/10/20 Discharge Plan Patient Name: NICOLAS SORIA Facility: [facility]:[place] : 1970 Planned Disposition: Outpatient PT\OT Anticipated Discharge Date: 04/11/20 Discharge Date: Expected LOS: 3 Initial Reviewer: [email or web address] Initial Review Date: 04/08/2020 Generated: 04/10/20 3:02 pm DCP- Discharge Planning Updated by [email or web address]: Ludy Rodriguez on 04/10/20 12:[address] DC Plan: [facility] OP Therapy, Phone #[phone], Fax #[phone]. Appointment: 04/12 @3:30, arrive @3:15 for paperwork. CM met with patient to discuss initial discharge planning. Patient is in agreement to proceed with the assessment. Patient reports that she lives at home independently with her family. Patient is alert/oriented. Stairs/steps: 4. PCP: DANIEL Yadav [facility], [place]. Pharmacy: [facility]. Patient states she has been able to obtain all of her prescribed medications. HHS: No. DME: FROYLAN, Damon, [facility]. Patient gives permission to speak with family members/care givers. Emergency contact: Rosa Hawkins [phone], Bryce Delaney (shawn?) [phone]. Patient is Independent with all ADL's, medication management CEMENTER. CM discussed the availability of HH, Rehab, SNF, OP Therapy, DME services. Patient's choice signed, [facility] OP Therapy. Patient denies the need for additional services at this time and feels safe returning to previous environment. Patient denies hospitalization within the past 30 days. Patient denies the use of community resources CEMENTER. Transportation at time of discharge: magda, Brcye. DCPIA - Discharge Planning Initial Assessment Updated by [email or web address]: Ludy Rodriguez on 04/10/20 1:55 pm * Is the patient Alert and Oriented? Yes * How many steps to enter\exit or inside your home? * PCP Neetu Ann APRN * Pharmacy [facility] * Preadmission Environment Home with Family * ADLs Independent * Equipment Bedside Commode Rolling Walker * Other Equipment CPM * List name and contact numbers for known caregivers / representatives who currently or will assist patient after discharge: Rosa Hawkins (dtr) [phone] Bryce Delaney (fianc?) [phone] * Verbal permission to speak to the caregivers and representatives has been obtained from the patient. Yes * Community resources currently utilized None * Please name any agencies selected above. [facility] $345.00 * Additional services required to return to the preadmission environment? Yes * Can the patient safely return to the preadmission environment? Yes * Has this patient been hospitalized within the prior 30 days at any hospital? No Last DP export: 04/10/20 12:06 p Patient Name: NICOLAS SORIA Page [phone] at 1402 All edits/amendments must be made on the electronic document DICTATION DATE: 04/10/201401 PRESCHOOL LEAD TEACHER: GAMA 04/10/20 140 RPT#: [id number] DC DATE: STATUS: ADM IN [facility] [address] [place] [address] END OF REPORT
--- NOTE | 2020-04-10 20:00 | NUR ---
ALERT RESTING IN BED CPM IN USE, REPORTS PAIN TO KNEE, REQUESTING PAIN MEDS SOON CAN HAVE THEM, SEE SHIFT ASSESSMENT, CALL LIGHT IN REACH
[2020-04-10 20:01] VITALS: BP 116/67
[2020-04-11 00:06] VITALS: BP 124/68
[2020-04-11 05:45] VITALS: BP 109/58
--- NOTE | 2020-04-11 07:33 | NUR ---
ALERT AND ORIENTEDX4 PROVENA WOUND VAC INTACT TO LEFT KNEE WITH PEDAL PULSES NOTED. CPM ON AT THIS TIME. DENIES ANY INCREASE PAIN OR DISCOMFORT AT THIS TIME. AMBULATES TO BATHROOM WITH SBA. NO DYSPNEA NOTED WITH ABDOMEN SOFT WITH BOWEL SOUNDS NOTED. ENCOURAGED TO USE CALL LIGHT FOR ASSSIT.
[2020-04-11 08:00] VITALS: BP 129/66
[2020-04-11] MEDS ORDERED: PERCOCET 10-321 EAC1 PO (08:37)
[2020-04-11] MEDS ORDERED: ELIQUIS2.5 MG PO (08:37)
--- NOTE | 2020-04-11 11:25 | NUR ---
IN DISCONTINUED AND VERBALIZED UNDERSTANDING OF DISCHARGE INSTRUCTIONS.OXYCODONE GIVEN FOR PAIN 8/10 FOR PAIN. ENCOURAGFED TO USE ICE NEEDED FOR PAIN MANAGEMENT AND ELEVATION. STABLE AT TIME OF DISCHARGE WITH PROVENA VAC INTACT.
--- NOTE | 2020-04-12 09:00 | MORECARE ---
CASE MANAGEMENT DISCHARGE SUMMARY PATIENT: NICOLAS SORIA UNIT: [id number] ADM DATE: 04/08/20 AGE: 49 : 74 SEX: F ROOM/BED: D.1208 AUTHOR: JANET,DOC PHYSICIAN: REFERRING PHYSICIAN: ELBERT WALKER MD DATE OF SERVICE: 04/12/20 Discharge Plan Patient Name: NICOLAS SORIA Facility: [facility]:[place] : 1970 Planned Disposition: Outpatient PT\OT Anticipated Discharge Date: 04/11/20 Discharge Date: 04/11/2020 Expected LOS: 3 Initial Reviewer: [email or web address] Initial Review Date: 04/08/2020 Generated: 04/12/20 9:59 am DCP- Discharge Planning Updated by [email or web address]: Ludy Rodriguez on 04/10/20 12:[address] DC Plan: [facility] OP Therapy, Phone #[phone], Fax #[phone]. Appointment: 04/12 @3:30, arrive @3:15 for paperwork. CM met with patient to discuss initial discharge planning. Patient is in agreement to proceed with the assessment. Patient reports that she lives at home independently with her family. Patient is alert/oriented. Stairs/steps: 4. PCP: DANIEL Yadav [facility], [place]. [facility]. Patient states she has been able to obtain all of her prescribed medications. HHS: No. DME: [facility], Damon, [facility]. Patient gives permission to speak with family members/care givers. Emergency contact: Rosa Hawkins [phone], Bryce Delaney (shawn?) [phone]. 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 CM discussed the availability of HH, Rehab, SNF, OP Therapy, DME services. Patient's choice signed, [facility] OP [facility]. Patient denies the need for additional services at this time and feels safe returning to previous environment. Patient denies hospitalization within the past 30 days. 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 Transportation at time of discharge: magda, Bryce. DCPIA - Discharge Planning Initial Assessment Updated by [email or web address]: Ludy Rodriguez on 04/10/20 1:55 pm * Is the patient Alert and Oriented? Yes * How many steps to enter\exit or inside your home? * PCP Neetu Ann APRN * Pharmacy [facility] * Preadmission Environment Home with Family * ADLs Independent * Equipment Bedside Commode Rolling Walker * Other Equipment CPM * List name and contact numbers for known caregivers / representatives who currently or will assist patient after discharge: Rosa Hawkins (dtr) [phone] Bryce Delaney (fianc?) [phone] * Verbal permission to speak to the caregivers and representatives has been obtained from the patient. Yes * Community resources currently utilized None * Please name any agencies selected above. [facility] $345.00 * Additional services required to return to the preadmission environment? Yes * Can the patient safely return to the preadmission environment? Yes * Has this patient been hospitalized within the prior 30 days at any hospital? 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
--- NOTE | 2020-04-13 11:34 | OP ---
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 PROCEDURE: Left total knee arthroplasty - press fit. SURGEON: Elbert Walker MD ANESTHESIA: General. INTRAOPERATIVE COMPLICATIONS: None. SUMMARY OF PATHOLOGIC FINDINGS: The patient did have a substantial medial compartment arthritis; however, global, in general, it did require removal of hardware prior to total knee arthroplasty. OPERATION SUMMARY IN DETAIL: After obtaining the appropriate preoperative orthopedic surgery consent as well as anesthetic consultation, evaluation and clearance, the patient was brought to the operating room and placed on the operating table in supine position. After adequate general laryngeal mask airway was administered, tourniquet was placed about the proximal aspect of the left lower extremity. Left lower extremity was then prepped and draped in routine sterile fashion. The leg was elevated and exsanguinated, tourniquet was inflated to 350 mmHg. Appropriate timeout was taken and agreed upon by all given the patient's unique identifiers. Midline incision was taken down for paramedian arthrotomy. The incision was extended distally for removal of the hardware. Hardware was removed with little degree of difficulty. Paramedian arthrotomy was then utilized further and the patella was everted. Distal femoral exposure led to removal of soft tissues in usual fashion. An intramedullary guide hole was created for distal femoral intramedullary guided cut. Distal femur was cut followed by complete exposure of the proximal tibia. Further soft tissue was taken down. Intramedullary guide hole was created in the tibia. Proximal tibia was cut using intramedullary guidance. Appropriate measurements were taken. Distal femoral and chamfer cuts were then made. Having completed this, trials were put into place, taken through range of motion, those corresponding to final implants, please see chart for final information. Final distal femoral and proximal tibial preparations made. The arthritic surface of the patella was then removed and final preparations for patellar resurfacing were made. Copious pulsatile lavage irrigation was followed by press fit implantation of all components, which afterwards had excellent range of motion. At this point, a gram of vancomycin and a gram of tobramycin were placed into the knee cavity. The paramedian arthrotomy was closed by TERRI Erickson as was the skin with #1 Vicryl, 2-0 Vicryl, and skin benson. Sterile dressings were applied. Tourniquet was deflated. The patient was awakened and taken to recovery room in stable condition. All final instrument counts were correct. TRANSINT:[id number] Voice Confirmation ID: [id number] DOCUMENT ID: [id number] OPERATIVE REPORT [id number] NICOLAS SORIA MD, ELBERT YAÑEZ at 1134 CC: [id number] DICTATION DATE: 04/12/20 1336 FORENSIC ACCOUNTANT: 04/12/20 2231 DIS IN 04/11/20 [facility] [address] [place] [address]
== END 2020-04-11 11:25 | disposition home or self-care (01) | DRG 470 ==
LOC: D.SDCHOLD 04-03 10:00 → D.M3 04-08 06:12 → D.SDCHOLD 04-08 06:12 → D.M3 04-08 11:03
PROVIDERS: ADMIT Orthopaedic Surgery; ATTEND Orthopaedic Surgery
PROC: 0SRC0JZ Replacement of Right Knee Joint with Synthetic Substitute, Open Approach (ICD-10-PCS; principal; 2020-04-08 07:40)
DX: M17.11 Unilateral primary osteoarthritis, right knee (principal); G25.81 Restless legs syndrome; I10 Essential (primary) hypertension; Z72.0 Tobacco use